=== PATIENT | male | born 1995 | race Caucasian/White ===

== ENCOUNTER 2018-03-17 14:23 | Emergency (ER) | payer BC ==
--- NOTE | 2018-03-17 15:09 | EDPHY ---
General Time Seen by Provider: 03/17/18 14:46 Narrative: CLINICAL IMPRESSION: Left ankle sprain ASSESSMENT/PLAN: 22-year-old male presents to the emergency department with acute left ankle pain after he fell off his skateboard yesterday. Patient has no open wounds, has intact distal neurovascular exam, no proximal tib-fib or knee pain or swelling on exam. X-rays of the ankle show no evidence of acute fracture, dislocation or bony abnormality. Patient was placed in a Velcro stirrup splint , rice treatment reviewed, orthopedic referral given, warning signs for return to emergency department sooner outlined and discharge papers. DIFFERENTIAL DX: Differential includes but not limited to acute fracture, strain/sprain, joint dislocation, soft tissue contusion ED PROCEDURES: Procedure: Splint placement. A Velcro ankle stirrup splint was applied to left ankle by garage door technician, supervised by myself. After application of the splint I returned and re-examined the patient. The splint was adequately immobilizing the joint and distal to the splint the patient's circulation and sensation was intact. ED COURSE: 3:00 p.m. x-rays reviewed by myself, no acute bony abnormality or fracture identified. Exam without obvious deformity. Neurovascular exam intact. CHIEF COMPLAINT: Left ankle pain HPI: 22-year-old male presents to the emergency department with complaints of acute left ankle pain. Patient was riding his skateboard yesterday when he tripped and fell. He was intoxicated. He has been able to ambulate but reports pain. No prior ankle injury or surgery. No open wounds. No loss of sensation. No lower leg or knee pain. No other injuries. PAST MEDICAL HISTORY: None reported Pertinent Past Surgical History: None reported Social History: Otherwise healthy REVIEW OF SYSTEMS: All other systems negative Constitutional: No fever, no chills Musculoskeletal: No deformity, + joint pain Skin: No rashes, color change or open wounds. Neurological: No sensory loss or weakness. PHYSICAL EXAM: General Appearance: Alert, oriented, appropriate for age, cooperative, NAD, well hydrated, non-toxic appearing, VSS, no hypoxia. Neurological: Alert and oriented x 3, normal sensation and strength of extremities Skin: Warm, dry, no rashes, no nodules on palpation. Musculoskeletal: Swelling to the lateral malleolus of the left ankle with reproducible pain along the anterior talofibular ligament. Distal neurovascular exam intact. No open wounds. No lower leg, proximal tib-fib or knee pain. No foot pain. MEDICAL DECISION MAKING: Patient was seen independently. Secondary supervising physician at time of evaluation was Dr Garcia . Diagnosis: Left ankle sprain. New, requires workup Summary: See assessment and plan for summary of ED visit Independent visualization of images, tracing, or specimens yes. Patient Progress: Stable. - History Smoking Status: Current some day smoker - Objective Vital Signs: Initial Vital Signs Temperature (C) 36.7 C 03/17/18 14:36 Heart Rate 73 03/17/18 14:36 Respiratory Rate 18 03/17/18 14:36 Blood Pressure 139/81 H 03/17/18 14:36 O2 Sat (%) 95 03/17/18 14:36 O2 Delivery Mode Room Air Allergies/Adverse Reactions: No Known Allergies Allergy (Unverified 03/17/18 14:39) Home Medications: Medication Instructions Recorded NK [No Known Home Meds] 03/17/18 Departure - Departure Disposition: Home, Routine, Self-Care Clinical Impression: Ankle sprain Condition: Good Instructions: Ankle Sprain (ED) Additional Instructions: DISCHARGE INSTRUCTIONS FROM YOUR DOCTOR Thank you for visiting our emergency department today. Please keep in mind that discharge from the emergency department does not mean that there is nothing wrong - it simply means that we have not identified an emergency condition that requires further evaluation or treatment in the hospital. You should always plan to follow up with primary care for re-evaluation of your condition in the next 2-3 days. If you have been referred to a specialist, please call as soon as possible (today or tomorrow) to schedule your follow up appointment at the appropriate time. WE SEE NO EVIDENCE OF FRACTURE OR BROKEN BONE ON THE X-RAY. PLEASE WEAR THE ANKLE STIRRUP SPLINT FOR COMFORT. REST AND ELEVATE THE AFFECTED EXTREMITY MUCH POSSIBLE. ICE THE AFFECTED AREAS 20 MIN ON, 20 MIN OFF FOR THE NEXT SEVERAL DAYS. PLEASE USE TYLENOL OR IBUPROFEN OVER THE COUNTER IN APPROPRIATE DOSES OUTLINED ON YOUR DISCHARGE PAPERS. TAKE IBUPROFEN WITH FOOD AND A LARGE GLASS OF WATER. FOLLOW UP WITH ORTHOPEDICS IF HER PAIN PERSISTS. RETURN TO THE EMERGENCY DEPARTMENT FOR SEVERE PAIN, LOSS OF SENSATION TO THE FOOT OR TOES, FEVER OR ANY OTHER CONCERN. People present with illnesses and injuries in different ways, and it is always possible that we have missed something. You may always return for re-evaluation if symptoms worsen or if they are not improving or if you develop new/different symptoms. Again, thank you for choosing our emergency department. We hope that you feel better. Referrals: NONE *PRIMARY CARE P,. [Primary Care Provider] - As per Instructions Jack Guevara MD [Medical Doctor] - As per Instructions
[2018-03-17 15:43] VITALS: BP 132/75
== END 2018-03-17 15:47 | disposition home or self-care (01) ==
DX: S93.402A Sprain of unspecified ligament of left ankle, initial encounter (principal); V00.131A Fall from skateboard, initial encounter; Y92.480 Sidewalk as the place of occurrence of the external cause
CPT/HCPCS: L4350